=== PATIENT | female | born 1970 | race Caucasian/White ===

== ENCOUNTER 2018-09-24 16:47 | Emergency (ER) | payer SELFPAY ==
[2018-09-24] MEDS ORDERED: Sodium Chloride 0.9% 10 ML Syringe FLUSH PRN (18:25)
[2018-09-24] MEDS ORDERED: LORazepam 2 MG/ML SDV IVPUSH ONE ×2 (18:25→20:39)
[2018-09-24] MEDS ORDERED: cloNIDine 0.1 MG Tab PO ONE (18:25)
--- NOTE | 2018-09-24 22:17 | EDM.PDOCBH ---
ED HPI GENERAL MEDICAL PROBLEM - General Chief Complaint: Drug or Alcohol Abuse Stated Complaint: [facility]IA [facility] Time Seen by Provider: 09/24/18 18:13 Source of Information: Reports: Patient, Other (Records from [place] emergency department) History Limitations: Reports: Other (She's alert and able to speak without much difficulty except for being extremely tremulous.) - History of Present Illness INITIAL COMMENTS - FREE TEXT/NARRATIVE: This lady is a long-time alcoholic and drinks anywhere from 12-18 beers a day. She presented to the [place] emergency department today wanting to go to detox and then back into alcohol rehabilitation. She said in the past she's actually been hospitalized for alcohol withdrawal twice before. Onetime for 3 days another for 5 days this was prior to going to detox. Her last drink was last night when she had 2 beers. She was evaluated in the [place] emergency department found to be medically stable and she was sent to [facility] which is a detox facility here in [place]. When she arrived there she was so shaky and tremulous that she was unable to walk. At [facility] they require people to be ambulatory and pretty well take care of themselves so they sent her to the emergency department here for further evaluation and treatment. The patient has no history of seizures. She describes feeling very anxious. She's not having any kind of hallucinations, auditory or visual. She's not having sweats or abnormal sensations. She feels nauseated but has not vomited. She did say she sat down hard in a chair and has some low back pain. She's taken some ibuprofen for this. She said that she seemed to have a little bit of numbness or tingling in her right leg for a little while but that's all better now. She's not having leg weakness but she is so shaky that she's not able to walk. Lower Back Pain Score (Numeric/FACES): 10 - Related Data Allergies Allergy/AdvReac Type Severity Reaction Status Date / Time No Known Allergies Allergy Verified 02/22/14 22:36 Home Meds: Home Meds NK [No Known Home Meds] 09/24/18 [History] Past Medical History HEENT History: Reports: Impaired Vision Gastrointestinal History: Reports: Chronic Diarrhea ADMINISTRATIVE RESIDENT History: Reports: Musculoskeletal History: Reports: Back Pain, Chronic Psychiatric History: Reports: Addiction, Anxiety - Infectious Disease History Infectious Disease History: Reports: Chicken Pox - Past Surgical History Head Surgeries/Procedures: Reports: None HEENT Surgical History: Reports: None GI Surgical History: Reports: Cholecystectomy Musculoskeletal Surgical History: Reports: None Dermatological Surgical History: Reports: None Social & Family History - Tobacco Use Smoking Status *Q: Never Smoker Second Hand Smoke Exposure: No - Caffeine Use Caffeine Use: Reports: Coffee, Energy Drinks - Alcohol Use Days Per Week of Alcohol Use: 7 Number of Drinks Per Day: 24 Total Drinks Per Week: 168 Date of Last Drink: 09/22/18 - Recreational Drug Use Recreational Drug Use: No ED ROS GENERAL - Review of Systems Review Of Systems: See Below (Not actual leg weakness just so shaky she can't walk.) Constitutional: Reports: Weakness. Denies: Fever, Chills, Malaise, Night Sweats , Diaphoresis HEENT: Reports: No Symptoms Respiratory: Reports: No Symptoms Cardiovascular: Reports: No Symptoms Endocrine: Reports: No Symptoms GI/Abdominal: Reports: Nausea : Reports: No Symptoms Musculoskeletal: Reports: Back Pain (See history of present illness) Skin: Reports: No Symptoms. Denies: Bruising Neurological: Reports: Difficulty Walking. Denies: Confusion, Headache, Numbness, Paresthesia, Seizure, Tingling Psychiatric: Denies: Confusion, Hallucinations, Homicidal Ideation, Suicidal Ideation Hematologic/Lymphatic: Reports: No Symptoms Immunologic: Reports: No Symptoms ED EXAM, BEHAVIORAL HEALTH - Physical Exam Exam: See Below Exam Limited By: No Limitations General Appearance: Alert, WD/WN (This lady generally looks in fairly good health but she is extremely tremulous with quite coarse tremors. She's alert she 's oriented and she's able to speak and pretty much a normal voice.) Eye Exam: Bilateral Eye: EOMI, Normal Inspection, PERRL, Other Ears: Normal External Exam (No mass effect was seen) Throat/Mouth: Normal Inspection Head: Atraumatic Neck: Normal Inspection, Full Range of Motion Respiratory/Chest: Lungs Clear Cardiovascular: Regular Rate, Rhythm, Tachycardia GI/Abdominal: Soft, Non-Tender Back Exam: Vertebral Tenderness (There is mild vertebral tenderness at about the L1-L3 level.). No: Muscle Spasm, Paraspinal Tenderness Extremities: Normal Inspection Neurological: Alert, Normal Mood/Affect (This lady is anxious but otherwise her mood and affect are normal), CN II-XII Intact, Normal Cognition, Normal Reflexes , No Motor/Sensory Deficits, Oriented x 3, Tremor (She is very tremulous. ), Other (Despite her tremors which limit her ability to walk she at least has normal rapid alternating movements. See treatment course). No: Normal Gait Psychiatric: Alert, Normal Affect, Normal Cognition, Normal Mood. No: Auditory Hallucinations, Visual Hallucinations Skin Exam: Warm, Dry COURSE, BEHAVIORAL HEALTH COMP - Course Vital Signs: Last Vital Signs Temp 35.8 C 09/24/18 22:01 Pulse 82 09/24/18 22:01 Resp 16 09/24/18 22:01 BP 124/74 09/24/18 22:01 Pulse Ox 98 09/24/18 22:01 Orders, Labs, Meds: Active Orders 24 hr Category Date Time Status Head wo Cont [CT] Stat Exams 09/24/18 20:41 Taken Sodium Chloride 0.9% [Saline Flush] Med 09/24/18 18:25 Active 10 ml FLUSH ASDIRECTED PRN Saline Lock Insert [OM.PC] Urgent Oth 09/24/18 18:25 Ordered Medication Orders Sodium Chloride (Saline Flush) 10 ml FLUSH ASDIRECTED PRN PRN Reason: Keep Vein Open Last Admin: 09/24/18 18:31 Dose: 10 ml Medications Generic Name Dose Route Start Last Admin Trade Name Freq PRN Reason Stop Dose Admin Sodium Chloride 10 ml 09/24/18 18:25 09/24/18 18:31 Saline Flush FLUSH 10 ml ASDIRECTED PRN Administration Keep Vein Open Discontinued Medications Generic Name Dose Route Start Last Admin Trade Name Freq PRN Reason Stop Dose Admin Clonidine HCl 0.2 mg 09/24/18 18:25 09/24/18 18:33 Catapres PO 09/24/18 18:26 0.2 mg ONETIME ONE Administration Lorazepam 2 mg 09/24/18 18:25 09/24/18 18:37 Ativan IVPUSH 09/24/18 18:26 2 mg ONETIME ONE Administration Lorazepam 1 mg 09/24/18 20:39 09/24/18 20:46 Ativan IVPUSH 09/24/18 20:40 1 mg ONETIME ONE Administration Re-Assessment/Re-Exam: This lady received 1 L of IV normal saline. Noted that she had a banana bag earlier today in [place]. We gave her clonidine 0.2 mg orally and 2 mg of Ativan IV. She settled down her decreased tremor decreased greatly and she was much more comfortable. The nurses got her up and attempted to have her walk but she was still too tremulous to walk. A CT scan was done of her head and that was all normal. She received a second dose of Ativan (1 mg) prior to the CT. Nurses are doing a formal CIWA assessment but that has been covered already in the history present illness. I spoke with Dr. Krause at [facility] and she has accepted her in transfer. Departure - Departure Time of Disposition: 22:31 Disposition: DC/Tfer to [facility] Clinical Impression: Alcohol withdrawal syndrome - Discharge Information Referrals: PCP,None [Primary Care Provider] - Forms: ED Department Discharge - My Orders Last 24 Hours: My Active Orders 09/24/18 18:25 Sodium Chloride 0.9% [Saline Flush] 10 ml FLUSH ASDIRECTED PRN Saline Lock Insert [OM.PC] Urgent 09/24/18 20:41 Head wo Cont [CT] Stat - Assessment/Plan Last 24 Hours: My Active Orders 09/24/18 18:25 Sodium Chloride 0.9% [Saline Flush] 10 ml FLUSH ASDIRECTED PRN Saline Lock Insert [OM.PC] Urgent 09/24/18 20:41 Head wo Cont [CT] Stat
== END 2018-09-24 23:11 ==
LOC: JP.ED 16:47
DX: F10.239 Alcohol dependence with withdrawal, unspecified (principal)
CPT/HCPCS: 70450; 96374; 96376; 99285; A9270; J2060; 99284